=== PATIENT | female | born 1950 ===

== ENCOUNTER 2018-11-15 09:54 | Outpatient (CLI) | payer MEDICARE, OTHER | END 2018-11-15 09:55 | disposition home or self-care (01) | LOC: C.MAMMO 09:54 | DX: Z12.31 Encounter for screening mammogram for malignant neoplasm of breast (principal) ==

== ENCOUNTER 2018-11-23 09:57 | Outpatient (CLI) | payer MEDICARE, OTHER | END 2018-11-23 09:58 | disposition home or self-care (01) | LOC: C.DEXAIC 09:58 | DX: Z13.820 Encounter for screening for osteoporosis (principal) ==